=== PATIENT | male | born 1980 | race Caucasian/White ===

== ENCOUNTER 2017-09-25 20:09 | Emergency (ER) | payer SELFPAY ==
[~2017-09-25] VITALS: Ht 175.3 cm; Wt 75.0 kg
[2017-09-25 20:11] VITALS: BP 148/78; PULSE 88; RESP 16; TEMP 98.6; O2SAT 99
--- NOTE | 2017-09-25 20:15 | PD ---
Physical Exam Date Seen by Provider: Sep 25, 2017 Time Seen by Provider: 20:13 Narrative 36-year-old white male presents to emergency department with complaints of left jaw pain. He states that he had slipped off his roof 2 days ago falling on his left side and struck his face. He denies syncope. He denies any focal numbness , tingling or weakness or no neck or back pain. Pain is moderate. Vital signs reviewed. Pt waiting for bed placement. Data Data Last Documented VS Vital Signs Date Time Temp Pulse Resp B/P (MAP) Pulse Ox O2 Delivery O2 Flow Rate FiO2 09/25/17 20:11 98.6 88 16 148/78 (101) 99 Room Air [facility] Medical Record Reviewed: No Supervised Visit with ANGELIA: No Scripts No Active Prescriptions or Reported Meds Baiorn Moore Sep 25, 2017 20:15
--- NOTE | 2017-09-25 21:08 | RADRPT ---
EXAM DATE/TIME: 09/25/2017 20:44 [facility] COMPARISON: No previous studies available for comparison. INDICATIONS : Trauma, fall. Left facial pain. RADIATION DOSE: 29.68 CTDIvol (mGy) MEDICAL HISTORY : None SURGICAL HISTORY : None. ENCOUNTER: Initial ACUITY: 1 day PAIN SCORE: 10/10 LOCATION: Left facial TECHNIQUE: Volumetric scanning of the facial bones was performed. Using automated exposure control and adjustme nt of the mA and/or kV according to patient size, radiation dose was kept as low as reasonably achiev able to obtain optimal diagnostic quality images. DICOM format image data is available electronicall y for review and comparison. FINDINGS: ORBITS: The orbital and infraorbital osseous structures are intact. The retroconal structures have a normal configuration. No radiopaque foreign bodies are seen. NASAL BONE: The nasal bone and maxillary spine are intact. ZYGOMATIC ARCHES: Symmetric without evidence of fracture. SINUSES: The maxillary, ethmoid and frontal sinuses are intact. No air-fluid levels seen. There is mild thick ening in the maxillary sinuses. MANDIBLE: There is a nondisplaced fracture through the left mandibular rami. There is overlying soft tissue swe lling. NASAL CAVITY: The nasal septum is intact and midline. The lacrimal ducts are intact. SOFT TISSUES: No radiopaque foreign bodies seen. No soft-tissue swelling is seen. INTRACRANIAL: No intracranial air seen. CRIBIFORM PLATE: Grossly intact. CONCLUSION: 1. Nondisplaced fractures of left mandibular ramus. 2. Mild mucosal thickening in the maxillary sinuses. Apolinar Gonzales MD on September 25, 2017 at 21:01 Board Certified Radiologist. This report was verified electronically.
--- NOTE | 2017-09-25 22:04 | PD ---
HPI Chief Complaint: Facial Pain or Swelling Time Seen by Provider: 21:14 Travel History International Travel<30 days: No Contact w/Intl Traveler<30days: No Traveled to known affect area: No History of Present Illness HPI 36 yo M c/o L face pain after he fell from a roof 2 days prior. Opening and closing of the mouth causes pain. Pt states he fell 10-15ft. No LOC. No additional injury to report. Pt cannot tolerate solid/semi solid food however can tolerate liquids. Pain constant. PFSH Past Medical History ADHD: Yes Anxiety: Yes Depression: Yes Chest Pain: Yes Diminished Hearing: No Tetanus Vaccination: < 5 Years Influenza Vaccination: No Social History Alcohol Use: Yes (OCC ) Tobacco Use: Yes (ONE PK EVERY OTHER DAY X 10 YEARS) Substance Use: Yes (Dilaudid weed) Allergies-Medications (Allergen,Severity, Reaction): Coded Allergies: No Known Allergies (Verified , 11/17/16) Reported Meds & Prescriptions Reported Meds & Active Scripts Active Lortab (Hydrocodone-Acetaminophen) 5-325 Mg Tab 1-2 Tab PO Q6H PRN Review of Systems Except as stated in HPI: all other systems reviewed are Neg General / Constitutional: No: Fever Physical Exam Narrative GENERAL: 36 yo M, WNWD, mild distress 2/2 pain SKIN: Warm and dry. HEAD: Atraumatic. Normocephalic. EYES: Pupils equal and round. No scleral icterus. No injection or drainage. ENT: No nasal bleeding or discharge. Mucous membranes pink and moist. Mild to moderate swelling TTP L face overlying mandibular ramus. NECK: Trachea midline. No JVD. CARDIOVASCULAR: Regular rate and rhythm. RESPIRATORY: No accessory muscle use. Clear to auscultation. Breath sounds equal bilaterally. GASTROINTESTINAL: Abdomen soft, non-tender, nondistended. Hepatic and splenic margins not palpable. MUSCULOSKELETAL: Extremities without clubbing, cyanosis, or edema. No obvious deformities. NEUROLOGICAL: Awake and alert. No obvious cranial nerve deficits. Motor grossly within normal limits. Five out of 5 muscle strength in the arms and legs. Normal speech. PSYCHIATRIC: Appropriate mood and affect; insight and judgment normal. Data Data Last Documented VS Vital Signs Date Time Temp Pulse Resp B/P (MAP) Pulse Ox O2 Delivery O2 Flow Rate FiO2 09/25/17 23:22 09/25/17 20:11 98.6 88 16 99 Room Air VS reviewed Orders Orders Ct Facial Bones W/O Iv Cont (09/25/17 20:15) Acetamin-Hydrocod 325-5 Mg ([place] 5-325 (09/25/17 22:15) Ed Discharge Order (09/25/17 22:30) Mandatory Outpatient Referral (09/25/17 22:32) MDM Medical Decision Making Medical Screen Exam Complete: Yes Emergency Medical Condition: Yes Medical Record Reviewed: Yes Differential Diagnosis mandibular fracture displaced, nondisplaced mandibular fracture, contusion Narrative Course Last [address] 09/25/172014 Signed Impressions: Service Date/Time: Monday, September 25, 2017 20:44 - CONCLUSION: 1. Nondisplaced fractures of left mandibular ramus. 2. Mild mucosal thickening in the maxillary sinuses. Apolinar Gonzales MD Pt refuses transfer to [facility] or [place], primarily due to concerns about getting a ride home. He understands risks of refusal of care, not limited to permanent malocclusion of jaw, deformity, chronic pain and suffering, infection/sepsis, permanent disability. Pt demonstrates capacity for independent decision making. He agrees to sign out against medical advise. He agrees to return if need be. Diagnosis Primary Impression: Mandible fracture Qualified Codes: S02.642A - Fracture of ramus of left mandible, initial encounter for closed fracture Additional Instructions: You have a choice when it comes to health care, and we are glad that you chose [facility]. Hopefully, we have met your expectations on today's visit. You are welcome to return to [facility] at any time, as we are committed to meeting the health care needs of our community. Med/Other Pt SpecificInfo: Prescription(s) given Scripts Hydrocodone-Acetaminophen (Lortab) 5-325 Mg Tab 1-2 TAB PO Q6H Y for PAIN SCALE 6 TO 10, #12 TAB 0 Refills Prov: Seamus Mckeon MD 09/25/17 Disposition: 01 DISCHARGE HOME Condition: Stable Seamus Mckeon MD Sep 25, 2017 22:04
[2017-09-25] MEDS ORDERED: ACETAMINOPHEN/HYDROcodone 325 MG/5 MG TAB PO ONE (22:15)
[2017-09-25] MEDS ORDERED: HYDR-3533 PO (22:30)
== END 2017-09-25 23:05 | disposition home or self-care (01) ==
LOC: NEPC 20:09
DX: S02.642A Fracture of ramus of left mandible, initial encounter for closed fracture (principal); W13.2XXA Fall from, out of or through roof, initial encounter
CPT/HCPCS: 70486

== ENCOUNTER 2018-01-15 00:06 | Emergency (ER) | payer SELFPAY ==
[~2018-01-15] VITALS: Ht 175.3 cm; Wt 68.0 kg
[~2018-01-15 00:06] MED LIST: HYDR-3533 PO
[2018-01-15 00:10] VITALS: BP 133/80; PULSE 80; RESP 16; TEMP 99; O2SAT 99
[2018-01-15] MEDS ORDERED: AMPICILLIN-SULBACTAM INJ 3 GM in SODIUM CHLORIDE 0.9% INJ 100 ML IV ONE (00:45)
[2018-01-15] MEDS ORDERED: ONDANSETRON HCL 4 MG/2 ML VIAL IV PUSH ONE (00:45)
[2018-01-15] MEDS ORDERED: MORPHINE SULFATE 4 MG/ML INJ IV PUSH ONE (00:45)
[2018-01-15] MEDS ORDERED: SODIUM CHLOR 0.9% 1000 ML INJ 1,000 ML IV ONE (00:45)
--- NOTE | 2018-01-15 00:56 | PD ---
HPI Chief Complaint: ENT Complaint Time Seen by Provider: 00:39 Travel History International Travel<30 days: No Contact w/Intl Traveler<30days: No Traveled to known affect area: No History of Present Illness HPI The patient is a 37-year-old male who presents to the emergency department for throat pain. The patient states he developed some right anterior throat pain 3 days ago. The pain is located over the anterior mid aspect of the throat, worse with swallowing as well as palpation. He denies any fever. He does complain of pain with swallowing. He denies any trauma to the neck. Symptoms are moderate. There are no alleviating or exacerbating factors. He denies any associated headache, ear pain, or nasal congestion. PFSH Past Medical History ADHD: Yes Anxiety: Yes Depression: Yes Chest Pain: Yes Diminished Hearing: No Tetanus Vaccination: Unknown Influenza Vaccination: No Past Surgical History Surgical History: No Previous Surgery Social History Alcohol Use: Yes (OCC ) Tobacco Use: Yes (1 pack every few days) Substance Use: Yes (Dilaudid weed. says he quit 2 years ago.) Allergies-Medications (Allergen,Severity, Reaction): Coded Allergies: No Known Allergies (Verified Allergy, Unknown, 01/15/18) Reported Meds & Prescriptions Reported Meds & Active Scripts Active Lortab (Hydrocodone-Acetaminophen) 5-325 Mg Tab 1-2 Tab PO Q6H PRN Review of Systems Except as stated in HPI: all other systems reviewed are Neg General / Constitutional: No: Fever HENT: Positive: Sore Throat, Neck Pain, No: Headaches, Lightheadedness Cardiovascular: No: Chest Pain or Discomfort Respiratory: No: Shortness of Breath Gastrointestinal: No: Nausea, Vomiting, Abdominal Pain Neurologic: No: Dizziness Physical Exam Narrative GENERAL: Awake, alert, 37-year-old male who appears his stated age and is in no acute respiratory distress. SKIN: Focused skin assessment warm/dry. HEAD: Atraumatic. Normocephalic. EYES: Pupils equal and round. No scleral icterus. No injection or drainage. ENT: No nasal bleeding or discharge. Oropharynx reveals cobblestoning but no erythema. NECK: Trachea midline. No JVD. Lymphadenopathy noted over the anterior right aspect of the neck which is mobile and tender. CARDIOVASCULAR: Regular rate and rhythm. No murmur appreciated. RESPIRATORY: No accessory muscle use. Clear to auscultation. Breath sounds equal bilaterally. GASTROINTESTINAL: Abdomen soft, non-tender, nondistended. MUSCULOSKELETAL: No obvious deformities. No clubbing. No cyanosis. No edema. NEUROLOGICAL: Awake and alert. No obvious cranial nerve deficits. Motor grossly within normal limits. Normal speech. PSYCHIATRIC: Appropriate mood and affect; insight and judgment normal. Data Data Last Documented VS Vital Signs Date Time Temp Pulse Resp B/P (MAP) Pulse Ox O2 Delivery O2 Flow Rate FiO2 01/15/18 00:10 99.0 80 16 133/80 (97) 99 Orders Orders Complete Blood Count With Diff (01/15/18 00:45) Comprehensive Metabolic Panel (01/15/18 00:45) Ct Soft Tiss Neck W Iv Cont (01/15/18 ) Morphine Inj (Morphine Inj) (01/15/18 00:45) Ondansetron Inj (Zofran Inj) (01/15/18 00:45) Sodium Chlor 0.9% 1000 Ml Inj (Ns 1000 M (01/15/18 00:45) Ampicillin-Sulbactam Inj (Unasyn Inj) (01/15/18 00:45) Lactic Acid (01/15/18 00:45) Blood Culture (01/15/18 00:45) Iohexol 350 Inj (Omnipaque 350 Inj) (01/15/18 02:10) Labs Laboratory Tests Test 01/15/18 01:00 White Blood Count 11.3 TH/MM3 Red Blood Count 4.72 MIL/MM3 Hemoglobin 14.4 GM/DL Hematocrit 41.1 % Mean Corpuscular Volume 87.2 FL Mean Corpuscular Hemoglobin 30.6 PG Mean Corpuscular Hemoglobin Concent 35.1 % Red Cell Distribution Width 15.8 % Platelet Count 239 TH/MM3 Mean Platelet Volume 9.1 FL Neutrophils (%) (Auto) 63.1 % Lymphocytes (%) (Auto) 26.7 % Monocytes (%) (Auto) 7.5 % Eosinophils (%) (Auto) 1.7 % Basophils (%) (Auto) 1.0 % Neutrophils # (Auto) 7.1 TH/MM3 Lymphocytes # (Auto) 3.0 TH/MM3 Monocytes # (Auto) 0.8 TH/MM3 Eosinophils # (Auto) 0.2 TH/MM3 Basophils # (Auto) 0.1 TH/MM3 CBC Comment AUTO DIFF Differential Comment AUTO DIFF CONFIRMED Platelet Estimate NORMAL Platelet Morphology Comment NORMAL Blood Urea Nitrogen 9 MG/DL Creatinine 0.94 MG/DL Random Glucose 100 MG/DL Total Protein 8.3 GM/DL Albumin 3.6 GM/DL Calcium Level 9.0 MG/DL Alkaline Phosphatase 94 U/L Aspartate Amino Transf (AST/SGOT) 20 U/L Alanine Aminotransferase (ALT/SGPT) 20 U/L Total Bilirubin 0.4 MG/DL Sodium Level 137 MEQ/L Potassium Level 3.7 MEQ/L Chloride Level 101 MEQ/L Carbon Dioxide Level 28.6 MEQ/L Anion Gap 7 MEQ/L Estimat Glomerular Filtration Rate 89 ML/MIN Lactic Acid Level 0.7 mmol/L [facility] Medical Decision Making Medical Screen Exam Complete: Yes Emergency Medical Condition: Yes Medical Record Reviewed: Yes Interpretation(s) Laboratory Tests Test 01/15/18 01:00 White Blood Count 11.3 TH/MM3 Red Blood Count 4.72 MIL/MM3 Hemoglobin 14.4 GM/DL Hematocrit 41.1 % Mean Corpuscular Volume 87.2 FL Mean Corpuscular Hemoglobin 30.6 PG Mean Corpuscular Hemoglobin Concent 35.1 % Red Cell Distribution Width 15.8 % Platelet Count 239 TH/MM3 Mean Platelet Volume 9.1 FL Neutrophils (%) (Auto) 63.1 % Lymphocytes (%) (Auto) 26.7 % Monocytes (%) (Auto) 7.5 % Eosinophils (%) (Auto) 1.7 % Basophils (%) (Auto) 1.0 % Neutrophils # (Auto) 7.1 TH/MM3 Lymphocytes # (Auto) 3.0 TH/MM3 Monocytes # (Auto) 0.8 TH/MM3 Eosinophils # (Auto) 0.2 TH/MM3 Basophils # (Auto) 0.1 TH/MM3 CBC Comment AUTO DIFF Differential Comment AUTO DIFF CONFIRMED Platelet Estimate NORMAL Platelet Morphology Comment NORMAL Blood Urea Nitrogen 9 MG/DL Creatinine 0.94 MG/DL Random Glucose 100 MG/DL Total Protein 8.3 GM/DL Albumin 3.6 GM/DL Calcium Level 9.0 MG/DL Alkaline Phosphatase 94 U/L Aspartate Amino Transf (AST/SGOT) 20 U/L Alanine Aminotransferase (ALT/SGPT) 20 U/L Total Bilirubin 0.4 MG/DL Sodium Level 137 MEQ/L Potassium Level 3.7 MEQ/L Chloride Level 101 MEQ/L Carbon Dioxide Level 28.6 MEQ/L Anion Gap 7 MEQ/L Estimat Glomerular Filtration Rate 89 ML/MIN Lactic Acid Level 0.7 mmol/L CT soft tissue neck reveals unremarkable exam with no adenopathy or visualize etiology for the patient's pain. Portions of the right internal jugular vein are prominent compared to left but thought to be an anatomic variant. Differential Diagnosis Differential diagnosis includes peritonsillar abscess, tonsillitis, submandibular abscess, parotitis, retropharyngeal abscess. Narrative Course IV was established, labs were drawn and sent, and the patient was placed on cardiac telemetry monitoring and continuous pulse oximetry monitoring. CT soft tissue neck with IV contrast was ordered. The patient was administered morphine , Zofran, Unasyn, and IV fluids. The patient's white count is minimally elevated at 11.3. Lactic acid is normal. CT of the soft tissue neck is essentially unremarkable, no significant adenopathy noted. The patient appears to have some anterior right cervical lymphadenopathy, will be treated for adenitis with Keflex and ibuprofen. He is advised to follow-up with a primary physician. Diagnosis Primary Impression: Lymphadenitis Additional Impression: Neck pain on right side Patient Instructions: General Instructions Additional Instructions: Medications as directed. Please provide the patient a copy of his CT results and lab results at discharge. Follow-up with your primary physician. Med/Other Pt SpecificInfo: Prescription(s) given Scripts Ibuprofen (Ibuprofen) 600 Mg Tab 600 MG PO Q6H Y for Pain/Inflammation, #20 TAB 0 Refills Prov: Saulo Diaz MD 01/15/18 Cephalexin (Keflex) 500 Mg Cap 500 MG PO Q6H for Infection for 7 Days, #28 CAP 0 Refills Prov: Saulo Diaz MD 01/15/18 Disposition: DISCHARGE HOME Condition: Stable Saulo Diaz MD Jan 15, 2018 00:56
[2018-01-15 01:13] LABS: AUTOMATED NEUTROPHIL # 7.1 TH/MM3 (1.8-7.7); BASOPHIL # 0.1 TH/MM3 (0-0.2); EOSINOPHIL # 0.2 TH/MM3 (0-0.4); EOSINOPHIL % 1.7 % (0.0-4.0); HEMATOCRIT 41.1 % (39.0-51.0); HEMOGLOBIN 14.4 GM/DL (13.0-17.0); LYMPH % 26.7 % (9.0-44.0); MEAN CELL VOLUME 87.2 FL (80.0-100.0); MEAN CORPUSCULAR HEMOGLOBIN 30.6 PG (27.0-34.0); MEAN CORPUSCULAR HGB CONC 35.1 % (32.0-36.0); MEAN PLATELET VOLUME 9.1 FL (7.0-11.0); MONO % 7.5 % (0.0-8.0); MONOCYTE # 0.8 TH/MM3 (0-0.9); NEUT % 63.1 % (16.0-70.0); PLATELET COUNT 239 TH/MM3 (150-450); RED BLOOD COUNT 4.72 MIL/MM3 (4.50-5.90); RED CELL DISTRIBUTION WIDTH 15.8 % (11.6-17.2); WHITE BLOOD COUNT 11.3 TH/MM3 (4.0-11.0)
[2018-01-15 01:36] LABS: ALKALINE PHOSPHATASE 94 U/L (45-117); TOTAL BILIRUBIN ADULT 0.4 MG/DL (0.2-1.0); TOTAL PROTEIN 8.3 GM/DL (6.4-8.2)
[2018-01-15 01:37] LABS: ALBUMIN 3.6 GM/DL (3.4-5.0); ALT (GPT) 20 U/L (12-78); AST (GOT) 20 U/L (15-37); BICARBONATE 28.6 MEQ/L (21.0-32.0); BLOOD UREA NITROGEN 9 MG/DL (7-18); CHLORIDE 101 MEQ/L (98-107); CREATININE 0.94 MG/DL (0.60-1.30); GLOMERULAR FILTRATION RATE 89 ML/MIN (>89); GLUCOSE,RANDOM 100 MG/DL (74-106); SODIUM (NA) 137 MEQ/L (136-145)
[2018-01-15] MEDS ORDERED: IOHEXOL 350 MG/ML 10 ML VIAL (for RAD DIAG) IVCONTRAST ONE (02:10)
--- NOTE | 2018-01-15 02:18 | RADRPT ---
EXAM DATE/TIME: 01/15/2018 02:01 [facility] COMPARISON: No previous studies available for comparison. INDICATIONS : Right neck pain. IV CONTRAST: 80 cc Omnipaque 350 (iohexol) IV RADIATION DOSE: 12.23 CTDIvol (mGy) MEDICAL HISTORY : substance use SURGICAL HISTORY : None. ENCOUNTER: Initial ACUITY: 1 day PAIN SCALE: 5/10 LOCATION: Right neck TECHNIQUE: Volumetric scanning of the neck was performed. Using automated exposure control and adjustment of th e mA and/or kV according to patient size, radiation dose was kept as low as reasonably achievable to obtain optimal diagnostic quality images. DICOM format image data is available electronically for r eview and comparison. FINDINGS: NASOPHARYNX: The nasopharyngeal airway has a normal configuration. No mucosal thickening or mass is seen. OROPHARYNX: The intrinsic muscles of the tongue are symmetric. The tonsillar pillars are intact. The prevertebr al soft tissues are not thickened. LARYNX: The supraglottic, glottic, and infraglottic structures are intact. PARAPHARYNGEAL: The parapharyngeal space is intact. SALIVARY GLANDS: The parotid and submandibular glands are intact. LYMPH NODES: No enlarged or necrotic-appearing nodes. THYROID: Homogeneous enhancement without evidence of nodule. BONES: Unremarkable. The right internal jugular vein is prominent there appears to be an anatomic variant. CONCLUSION: Unremarkable exam with no adenopathy or visualized etiology for the patient's pain. P ortions of the right internal jugular vein are prominent compared to the left but felt to be an anato john variant. Apolinar Gonzales MD on January 15, 2018 at 2:14 Board Certified Radiologist. This report was verified electronically.
[2018-01-15] MEDS ORDERED: CEPH-460 PO (02:24)
[2018-01-15] MEDS ORDERED: IBUP-232 PO (02:24)
== END 2018-01-15 02:53 | disposition home or self-care (01) ==
LOC: NEPC 00:06
DX: I88.9 Nonspecific lymphadenitis, unspecified (principal); M54.2 Cervicalgia; F17.200 Nicotine dependence, unspecified, uncomplicated
CPT/HCPCS: 70491; 80053; 83605; 85025; 87040; 96365; 96375; 99284; J0295; J2270; J2405; J7030; Q9967